=== PATIENT | male | born 1990 ===

== ENCOUNTER 2020-05-07 14:43 | Emergency (ER) | payer MEDICAID ==
[~2020-05-07] VITALS: Ht 193 cm; Wt 104.5 kg
[2020-05-07 14:45] VITALS: BP 171/109
[2020-05-07] MEDS ORDERED: proparacaine 0.5% ophthalmic drops 15ml EACHEYE ONE (15:00)
== END 2020-05-07 15:43 | disposition home or self-care (01) ==
LOC: ER 14:44
DX: T59.91XA Toxic effect of unspecified gases, fumes and vapors, accidental (unintentional), initial encounter (principal); H10.213 Acute toxic conjunctivitis, bilateral; I10 Essential (primary) hypertension; J45.909 Unspecified asthma, uncomplicated; F17.200 Nicotine dependence, unspecified, uncomplicated; F12.90 Cannabis use, unspecified, uncomplicated; Z72.89 Other problems related to lifestyle; X58.XXXA Exposure to other specified factors, initial encounter; Y93.89 Activity, other specified; Y92.89 Other specified places as the place of occurrence of the external cause; Y99.8 Other external cause status
CPT/HCPCS: 99283